=== PATIENT | male | born 1995 | race Two or more races ===

== ENCOUNTER 2025-05-01 20:07 | Emergency (ER) | payer MEDICAID, SELFPAY ==
[2025-05-01 20:10] VITALS: BMI 32.3
[2025-05-01 20:15] VITALS: BP 162/95; PULSE 95; RESP 18; TEMP 36.8; O2SAT 98
--- NOTE | 2025-05-01 20:22 | EDNOTE_ITS ---
ED Male Genitalurinary RME/HPI General Chief complaint: Urogenital-Male Stated complaint: PAIN WITH URINATION Time Seen by Provider: 05/01/25 20:20 Arrival date/time: 05/01/25 20:07 30M with history of chronic phimosis presents to ED with worsening difficulty urinating. No discharge. Patient has pending outpatient urology referral. Limitations: no limitations Related Data Home Medications ?Medication ?Instructions ?Recorded ?Confirmed No Known Home Medications 06/18/2007/17 Allergies Allergy/AdvReac Type Severity Reaction Status Date / Time No Known Allergies Allergy Verified 05/01/25 20:10 Review of Systems Review of Systems Systems Reviewed: All systems reviewed, normal except as documented Genitourinary Genitourinary: Reports as per HPI and Reports difficulty urinating Past Medical History Past Medical History CARDIAC: Negative Congestive Heart Failure RESPIRATORY: Negative Chronic Obstructive Pulmonary Disease (COPD) GENITOURINARY: Negative Renal Disease ENDOCRINE: Negative Diabetes Mellitus Type 1 or Diabetes Mellitus Type 2 Social History SMOKING STATUS: Current every day smoker ED Exam General Limitations: Present no limitations General appearance: Present alert and in no apparent distress Head Head exam: Present atraumatic Neck Neck exam: Present normal inspection, full ROM and trachea midline Chest Chest inspection: Present normal inspection and symmetric chest wall rise Expanded Exam exam: Present phimosis Neurological Exam Neurological exam: Present alert and oriented X3 Psychiatric Psychiatric exam: Present normal affect and normal mood Skin Skin exam: Present warm, dry, intact and normal color Course Quality Measures none Orders Category Date Time Status Drug Screen,Urine Stat Lab 05/01/25 20:26 Completed Urinalysis, C/S if Indicated Stat Lab 05/01/25 20:26 Completed Vital Signs Vital signs: Vital Signs Temperature 98.3 F 05/01/25 20:15 Pulse Rate 95 05/01/25 20:15 Respiratory Rate 18 05/01/25 20:15 Blood Pressure 162/95 H 05/01/25 20:15 Pulse Oximetry (%) 98 05/01/25 20:15 Oxygen Delivery Method Room Air 05/01/25 20:15 O2 at 98% on RA and WNLs Urogenital - Male MDM Narrative MDM Narrative:: 30M with history of chronic phimosis presents to ED with worsening difficulty urinating. No discharge. Patient has pending outpatient urology referral. Physical exam with cert occupational therapy asst [facility] reveals phimosis, but no discharge, redness, or swelling. Patient is afebrile, calm, and alert. UA and tox screen neg. Greens Picker given. Patient data External records reviewed:: [facility] previous records Clinical information provided by:: patient Social determinants that could affect healthcare access:: none Patient has the following chronic illnesses:: none How is presenting disease/condition affected by chronic disease/condition?: no chronic disease Evaluation data The following diagnostics were reviewed and interpreted by me:: lab results Lab and/or radiology exams considered but not ordered:: ordered Interpretation Summary: above Medications / Prescriptions Medications or Prescriptions considered but not ordered:: not ordered Medication administrations:: n/a Consultations Consultation(s) initiated? (list below): No Diagnosis Urogenital Male Differential Diagnosis: urinary tract infection, priapism, urethritis, epididymitis, genital herpes simplex, prostatitis, acute retention of urine, inguinal hernia and other (phimosis) Most likely diagnosis given after review of the tests above:: phimosis of penis Admission Indicated Admission indicated?: not indicated Admission Request Was there a request for admission?: No Disposition Plan Disposition Plan: Discharge Discharge Attestation Discharge Attestation: The patient and all family members were given an opportunity to ask questions and understood the discharge instructions. Discharge instructions specifically effects, indications for sooner follow up or return to the emergency department, and the expected course of current diagnosis. Patient condition: Stable Discharge Plan Plan Patient Disposition: HOME (Self Care) Discharge Disposition comment: Stable Prescriptions/Referrals Prescriptions/Med Rec: No Action No Known Home Medications Referrals: Lucy Schmitz NP [Primary Care Provider] - In 1 week Problem List Clinical Impression: Phimosis of penis Patient/Caregiver Discharge Instructions Education Materials: ED Phimosis Additional Instructions: Please follow-up with PCP within 24-48 hours and return immediately if symptoms worsen. Good luck with urology referral. Print Language: Frisian Stand Alone Forms: Patient Portal Info Letter ESME/GALI Supervising Physician [place] Supervising Physician: Dr. Michaud
[2025-05-01 20:37] LABS: Collection Type, Urine Clean Catch; Squamous Epithelial Cell,Urine 0 /hpf (0-5)
[2025-05-01 20:54] LABS: Amphetamine/Methamp Scrn,U Negative (Negative); Barbiturate Screen,Urine Negative (Negative); Benzodiazepines Screen,Urine Negative (Negative); Benzoylecgonine Screen, Ur Negative (Negative); Fentanyl Screen,Urine Negative (Negative); Opiate Screen,Urine Negative (Negative); THC Screen,Urine Negative (Negative)
[2025-05-01 21:05] LABS: Bilirubin,Urine Negative (Negative); Blood,Urine Negative (Negative); Clarity,Urine Clear (Clear/Hazy); Color,Urine Yellow (Lt Yel-Yel); Culture Indicated,Urine Not Indicated; Glucose, Urine Negative (Negative); Ketones,Urine Negative (Negative); Leukocyte Esterase,Urine Negative (Negative); Nitrite,Urine Negative (Negative); PH,Urine 6.0 (5.0-7.0); Protein,Urine Trace (Neg - Trace); RBC,Urine 2 /hpf (0-3); Specific Gravity,Urine 1.031 (1.001-1.035); Urobilinogen,Urine Negative mg/dL (0.0-1.0); WBC,Urine 1 /hpf (0-5)
== END 2025-05-01 21:26 | disposition home or self-care (01) ==
PROVIDERS: Physician Assistant; Emergency Provider Emergency Medicine; PCP Nurse Practitioner Family
DX: N47.1 Phimosis (principal)
CPT/HCPCS: 80307; 81001; 99283